=== PATIENT | female | born 1980 | race Native Hawaiian/Other Pacific Islander ===

== ENCOUNTER 2020-07-15 08:26 | Outpatient (CLI) | payer OTHER ==
[~2020-07-15 08:26] MED LIST: ASA LOW STR81 MG PO; CLARINEX D OR; FLUT0.05 NAS; LEVO0.1T6 PO; LO LOESTRIN OR; PREVACID30 MG OR; VITAMIN D1000 UNIT OR
[2020-07-15 09:34] LABS: PLATELET COUNT 257 K/uL (152-353)
[2020-07-15 10:35] LABS: POTASSIUM 4.2 mmol/L (3.6-5.2)
== END 2020-07-15 21:47 | disposition home or self-care (01) ==
LOC: LABW 08:26
PROVIDERS: ATTEND Nurse Practitioner Family
DX: R53.83 Other fatigue (principal); K59.00 Constipation, unspecified; E03.9 Hypothyroidism, unspecified
CPT/HCPCS: 36415; 80053; 80061; 82306; 82607; 82747; 83001; 83002; 83525; 83918; 84439; 84443; 84481; 85027; 86376; 86800

== ENCOUNTER 2020-07-26 15:52 | Outpatient (CLI) | payer OTHER | END 2020-07-26 20:11 | disposition home or self-care (01) | LOC: LABW 15:52 | PROVIDERS: ATTEND Nurse Practitioner Family | DX: L71.0 Perioral dermatitis (principal) | CPT/HCPCS: 36415; 82728; 83540; 83550 ==

== ENCOUNTER 2020-08-02 11:05 | Outpatient (CLI) | payer OTHER | END 2020-08-02 20:13 | disposition home or self-care (01) | LOC: LAB 11:05 | PROVIDERS: ATTEND Nurse Practitioner Family | DX: R53.83 Other fatigue (principal) | CPT/HCPCS: 82626; 82642; 84402; 84403 ==

== ENCOUNTER 2020-08-30 16:21 | Outpatient (CLI) | payer OTHER | END 2020-08-30 21:38 | disposition home or self-care (01) | LOC: LAB 16:21 | PROVIDERS: ATTEND Dermatology Procedural Dermatology | DX: R53.83 Other fatigue (principal) | CPT/HCPCS: 36415; 84402; 84403 ==

== ENCOUNTER 2021-02-03 07:55 | Outpatient (CLI) | payer OTHER ==
[2021-02-03 08:37] LABS: PLATELET COUNT 195 K/uL (152-353)
== END 2021-02-03 18:58 | disposition home or self-care (01) ==
LOC: LABW 07:55
PROVIDERS: ATTEND Nurse Practitioner Family
DX: L70.0 Acne vulgaris (principal); Z79.899 Other long term (current) drug therapy
CPT/HCPCS: 36415; 80076; 82465; 84478; 85027

== ENCOUNTER 2021-02-08 09:03 | Outpatient (CLI) | payer OTHER ==
[~2021-02-08] VITALS: Ht 172.7 cm; Wt 108.9 kg
== END 2021-02-08 20:35 | disposition home or self-care (01) ==
LOC: INF 09:03
PROVIDERS: ATTEND Internal Medicine
DX: Z23 Encounter for immunization (principal); U07.1 COVID-19
CPT/HCPCS: 96365; M0244

== ENCOUNTER 2021-02-28 14:20 | Outpatient (CLI) | payer OTHER | END 2021-02-28 19:14 | disposition home or self-care (01) | LOC: LAB 14:20 | PROVIDERS: ATTEND Nurse Practitioner Family | DX: Z79.899 Other long term (current) drug therapy (principal) | CPT/HCPCS: 36415; 82607; 84207 ==

== ENCOUNTER 2021-05-18 08:51 | Outpatient (CLI) | payer OTHER ==
[2021-05-18 09:31] LABS: PLATELET COUNT 243 K/uL (152-353)
== END 2021-05-18 19:21 | disposition home or self-care (01) ==
LOC: LABW 08:51
PROVIDERS: ATTEND Nurse Practitioner Family
DX: L70.0 Acne vulgaris (principal); Z79.899 Other long term (current) drug therapy
CPT/HCPCS: 36415; 80076; 82465; 84478; 85027

== ENCOUNTER 2021-06-30 08:07 | Outpatient (CLI) | payer OTHER | END 2021-06-30 23:04 | disposition home or self-care (01) | LOC: RESP 08:07 | PROVIDERS: ATTEND Nurse Practitioner Family | DX: R00.2 Palpitations (principal) | CPT/HCPCS: 93225 ==